=== PATIENT | female | born 1960 | race Caucasian/White ===

== ENCOUNTER 2019-02-28 10:12 | Emergency (ER) | payer OTHER ==
[2019-02-28] MEDS ORDERED: NS 1,000 ML IV ONE (11:11)
--- NOTE | 2019-02-28 11:12 | EDPHY ---
H & P Time Seen by Provider: 02/28/19 11:10 HPI/ROS: Chief complaint. Chest pain HPI. Patient is a 58-year-old female here by EMS. She was feeling well this morning. She was at work when she became somewhat dizzy and hot and had some vomiting. She briefly had some squeezing lower chest discomfort. There was no radiation. No shortness of breath. No recent fever or cough. She was seen initially at urgent care and referred to the ED. She was given Zofran and her nausea is better her chest pain is resolved. She had similar symptoms 2 weeks ago. She has no unusual leg pain or swelling ROS 10 systems were reviewed and negative with the exception of the elements mentioned in the history of present illness Past Medical/Surgical History: Past medical history thyroid cancer and hypertension as well as cholecystectomy in 2005 No family history of coronary artery disease Social History: Single, nonsmoker, no alcohol Smoking Status: Never smoked Physical Exam: General Appearance: Alert pleasant well-developed female mild distress. Vital signs are stable Eyes: Pupils equal and round no pallor or injection. ENT, Mouth: Mucous membranes are moist. Respiratory: There are no retractions, lungs are clear to auscultation. Cardiovascular: Regular rate and rhythm. Gastrointestinal: Abdomen is soft and slight tenderness in the epigastrium showing me where her pain had been, no masses, bowel sounds normal. Neurological: Awake and alert, sensory and motor exams grossly normal. Skin: Warm and dry, no rashes. Musculoskeletal: Neck is supple nontender. Extremities symmetrical, full range of motion. Psychiatric: Patient is oriented X 3, there is no agitation. Constitutional: Initial Vital Signs Heart Rate 59 L 02/28/19 10:15 Respiratory Rate 18 02/28/19 10:15 Blood Pressure 148/89 H 02/28/19 10:15 O2 Sat (%) 100 02/28/19 10:15 O2 Delivery Mode Room Air Allergies/Adverse Reactions: telithromycin [From Ketek] Allergy (Verified 02/28/19 10:19) Medical Decision Making - Diagnostics EKG Interpretation: EKG interpreted by me shows normal sinus rhythm with normal interval and axis. QRS is normal there is no significant ST elevation or depression. No arrhythmia. The rate is 61 EKG from the clinic is also reviewed by me as a comes with the patient and it is normal Imaging Results: Imaging Impressions Chest X-Ray 02/28/19 11:11 Impression: Negative portable chest. Procedures: IV normal saline, monitor ED Course/Re-evaluation: Re-evaluation at 1:35 p.m.. Patient is stable. She has no symptoms. She and I discussed imaging, lab, EKG findings. We discussed treatment plan including criteria for return and importance of follow-up and further evaluation. She expresses understanding and agreement We discussed admission and she is offered admission however she feels comfortable going home and being treated as an outpatient. Risks and benefits of this are discussed Differential Diagnosis: Because of her symptoms is somewhat unclear. I considered acute coronary syndrome, pancreatitis, GERD, pneumonia. Patient really has minimal risk factors for coronary artery disease. We did discuss further cardiac evaluation and she is agreeable to this on an outpatient follow-up basis - Data Points Laboratory Results: Laboratory Results 02/28/19 10:23 02/28/19 10:23 02/28/19 02/28/19 02/28/19 11:16 10:23 10:23 WBC RBC Hgb Hct MCV MCH MCHC RDW Plt Count MPV Neut % (Auto) Lymph % (Auto) Nolan % (Auto) Eos % (Auto) Baso % (Auto) Nucleat RBC Rel Count Absolute Neuts (auto) Absolute Lymphs (auto) Absolute Monos (auto) Absolute Eos (auto) Absolute Basos (auto) Absolute Nucleated RBC Immature Gran % Immature Gran # D-Dimer 0.45 ug/mLFEU ug/mLFEU (0.00-0.50) Sodium 140 mEq/L mEq/L (135-145) Potassium 4.2 mEq/L mEq/L (3.5-5.2) Chloride 102 mEq/L mEq/L (97-110) Carbon Dioxide 25 mEq/l mEq/l (22-31) Anion Gap 13 mEq/L mEq/L (6-14) BUN 22 mg/dL mg/dL (7-23) Creatinine 1.1 mg/dL H mg/dL (0.6-1.0) Estimated GFR 51 Glucose 108 mg/dL H mg/dL (70-100) Calcium 9.4 mg/dL mg/dL (8.5-10.4) Total Bilirubin 0.6 mg/dL mg/dL (0.1-1.4) Conjugated Bilirubin 0.5 mg/dL mg/dL (0.0-0.5) Unconjugated Bilirubin 0.1 mg/dL mg/dL (0.0-1.1) AST 79 IU/L H IU/L (14-46) ALT 83 IU/L H IU/L (9-52) Alkaline Phosphatase 98 IU/L IU/L (38-126) POC Troponin I 0.00 ng/mL ng/mL (0.00-0.08) Total Protein 7.2 g/dL g/dL (6.3-8.2) Albumin 4.6 g/dL g/dL (3.5-5.0) Lipase 150 IU/L IU/L (23-300) 02/28/19 10:23 WBC 10.38 10^3/uL H 10^3/uL (3.80-9.50) RBC 5.10 10^6/uL 10^6/uL (4.18-5.33) Hgb 14.5 g/dL g/dL (12.6-16.3) Hct 44.7 % % (38.0-47.0) MCV 87.6 fL fL (81.5-99.8) MCH 28.4 pg pg (27.9-34.1) MCHC 32.4 g/dL g/dL (32.4-36.7) RDW 13.1 % % (11.5-15.2) Plt Count 243 10^3/uL 10^3/uL (150-400) MPV 10.2 fL fL (8.7-11.7) Neut % (Auto) 76.7 % H % (39.3-74.2) Lymph % (Auto) 15.8 % % (15.0-45.0) Nolan % (Auto) 4.7 % % (4.5-13.0) Eos % (Auto) 1.6 % % (0.6-7.6) Baso % (Auto) 0.9 % % (0.3-1.7) Nucleat RBC Rel Count 0.0 % % (0.0-0.2) Absolute Neuts (auto) 7.96 10^3/uL H 10^3/uL (1.70-6.50) Absolute Lymphs (auto) 1.64 10^3/uL 10^3/uL (1.00-3.00) Absolute Monos (auto) 0.49 10^3/uL 10^3/uL (0.30-0.80) Absolute Eos (auto) 0.17 10^3/uL 10^3/uL (0.03-0.40) Absolute Basos (auto) 0.09 10^3/uL 10^3/uL (0.02-0.10) Absolute Nucleated RBC 0.00 10^3/uL 10^3/uL (0-0.01) Immature Gran % 0.3 % % (0.0-1.1) Immature Gran # 0.03 10^3/uL 10^3/uL (0.00-0.10) D-Dimer Sodium Potassium Chloride Carbon Dioxide Anion Gap BUN Creatinine Estimated GFR Glucose Calcium Total Bilirubin Conjugated Bilirubin Unconjugated Bilirubin AST ALT Alkaline Phosphatase POC Troponin I Total Protein Albumin Lipase Medications Given: Discontinued Medications Sodium Chloride (Ns) 1,000 mls @ 0 mls/hr IV EDNOW ONE; Wide Open PRN Reason: Protocol Stop: 02/28/19 11:12 Last Admin: 02/28/19 11:29 Dose: 1,000 mls Point of Care Test Results: Chemistry 02/28/19 11:16 POC Troponin I 0.00 ng/mL ng/mL (0.00-0.08) Departure - Departure Disposition: Home, Routine, Self-Care Clinical Impression: Chest pain Qualifiers: Chest pain type: unspecified Qualified Code(s): R07.9 - Chest pain, unspecified Condition: Good Instructions: Chest Pain (ED) Additional Instructions: Easy activity. Return for further chest discomfort or trouble breathing. Call Cardiology to arrange further evaluation in the next 1-2 days Referrals: GREY HYLTON [Primary Care Provider] - As per Instructions Regino Espinoza MD [Medical Doctor] - 2-3 days, call for appt.
[2019-02-28 11:23] LABS: PLATELET COUNT 243 10^3/uL (150-400)
[2019-02-28 13:24] VITALS: BP 120/72
--- NOTE | 2019-02-28 15:46 | CPEKG ---
Test Reason : OPEN Blood Pressure : / mmHG Vent. Rate : 061 BPM Atrial Rate : 060 BPM P-R Int : 180 ms QRS Dur : 095 ms QT Int : 426 ms P-R-T Axes : 057 060 044 degrees QTc Int : 429 ms Sinus rhythm Confirmed by Varun Dunne ([id number]) on 02/28/2019 3:45:58 PM Referred By: PHYSICIAN ED Confirmed By:Varun Dunne
== END 2019-02-28 14:14 | disposition home or self-care (01) ==
DX: R07.9 Chest pain, unspecified (principal); E86.9 Volume depletion, unspecified
CPT/HCPCS: 84484-ER